=== PATIENT | male | born 1965 | race Caucasian/White ===

== ENCOUNTER 2023-04-15 15:43 | Emergency (ER) | payer BC, OTHER ==
[2023-04-15] MEDS ORDERED: Albuterol/Ipratropium 3.0-0.5 MG/3 ML Neb Soln NEB PRN (16:11)
[2023-04-15] MEDS ORDERED: Lactated Ringers 1,000 ML IV SCH (16:15)
[2023-04-15 16:38] LABS: BASOPHILS ABSOLUTE AUTO 0.3 K/mm3 (0.0-0.2); EOSINOPHILS ABSOLUTE AUTO 0.6 K/mm3 (0.0-0.4); EOSINOPHILS PERCENT AUTO 5.1 % (0.0-6.0); HEMATOCRIT 45.3 % (42.0-52.0); IMMATURE GRAN ABSOLUTE AUTO 0.19 K/mm3 (0.00-0.05); IMMATURE GRAN PERCENT AUTO 1.7 % (0.0-0.4); LYMPHOCYTES ABSOLUTE AUTO 1.9 K/mm3 (1.0-4.8); LYMPHOCYTES PERCENT AUTO 16.6 % (24.0-44.0); MEAN CORPUSCULAR HEMOGLOBIN 30.5 pg (28.0-32.0); MEAN CORPUSCULAR HGB CONC 33.1 g/dl (32.0-36.0); MEAN CORPUSCULAR VOLUME 92.1 fl (83.0-99.0); MEAN PLATELET VOLUME 10.1 fl (9.4-12.4); MONOCYTES ABSOLUTE AUTO 0.6 K/mm3 (0.0-0.8); MONOCYTES PERCENT AUTO 5.5 % (0.0-8.0); NEUTROPHILS ABSOLUTE AUTO 7.8 K/mm3 (1.8-7.7); NEUTROPHILS PERCENT AUTO 68.1 % (41.0-71.0); PLATELET COUNT,PLT 278 K/mm3 (150-400); RED BLOOD CELL COUNT 4.92 M/mm3 (4.52-5.90); WHITE BLOOD CELL COUNT,WBC 11.48 K/mm3 (3.9-11.3)
[2023-04-15 16:48] LABS: INR 0.98; PROTHROMBIN TIME 10.5 SECONDS (9.7-12.0)
[2023-04-15 16:49] LABS: A/G RATIO 0.9 (1-2); ALANINE AMINOTRANSFERASE,ALT 131 U/L (16-63); ALBUMIN 3.7 g/dl (3.4-5.0); ALKALINE PHOSPHATASE 272 U/L (46-116); ANION GAP 14.9 (5-15); ASPARTATE AMNIOTRANSFERASE,AST 104 U/L (15-37); BILIRUBIN TOTAL 0.3 mg/dL (0.2-1.0); BLOOD UREA NITROGEN,BUN 22 mg/dL (7-18); BUN/CREATININE RATIO 18.3 (14-18); C-REACTIVE PROTEIN 0.8 mg/dL (<1.0); CALCIUM 9.6 mg/dL (8.5-10.1); CARBON DIOXIDE,CO2 30 mEq/L (21-32); CHLORIDE,CL 99 mEq/L (98-107); CREATININE 1.2 mg/dL (0.7-1.3); EST CRCL DRUG DOSING (CG) 71.87 mL/min; ESTIMATED GFR 70 mL/min (>60); GLUCOSE RANDOM 116 mg/dL (70-99); MAGNESIUM 1.6 mg/dL (1.8-2.4); POTASSIUM,K 3.9 mEq/L (3.5-5.1); PROTEIN TOTAL,TP 7.9 g/dl (6.4-8.2); SODIUM,NA 140 mEq/L (136-145)
[2023-04-15 16:50] LABS: PTT,PARTIAL THROMBOPLSTIN TIME 30.3 SECONDS (21.7-31.4)
[2023-04-15 16:53] LABS: TROPONIN I HIGH SENSITIVITY < 4 pg/mL (<=76)
[2023-04-15 17:45] LABS: CORONAVIRUS COVID-19 NAA NEGATIVE (NEGATIVE); INFLUENZA A NAA NEGATIVE (NEGATIVE); RESPIRATORY SYNCYTIAL VIR NAA NEGATIVE (NEGATIVE)
[2023-04-15] MEDS ORDERED: Iopamidol 755 Mg/ML 100 ML Bottle IVPUSH ONE (18:06)
[2023-04-15] MEDS ORDERED: Sodium Chloride 0.9% 100 ML IV SCH (18:15)
== END 2023-04-15 20:15 | disposition home or self-care (01) ==
LOC: JD.ED 15:43
DX: R06.02 Shortness of breath (principal); R63.4 Abnormal weight loss; C34.31 Malignant neoplasm of lower lobe, right bronchus or lung
CPT/HCPCS: 0241U; 36415; 71045; 71275; 80053; 83735; 83880; 84443; 84484; 85025; 85379; 85610; 85730; 86140; 93005; 94640; 96360; 96361; 99285; J7120; Q9967; 93010; J7620-GY

== ENCOUNTER 2023-04-19 16:05 | Emergency (ER) | payer BC ==
[2023-04-19] MEDS ORDERED: Metoclopramide 10 MG/2 ML SDV IVPUSH ONE (16:26)
[2023-04-19] MEDS ORDERED: HYDROmorphone 1 MG/ML Syringe IVPUSH ONE (16:26)
[2023-04-19] MEDS ORDERED: Dextrose 5%-0.9% NaCl 1,000 ML IV SCH (16:30)
== END 2023-04-19 17:40 | disposition home or self-care (01) ==
LOC: JD.ED 16:05
DX: S22.089A Unspecified fracture of T11-T12 vertebra, initial encounter for closed fracture (principal); J44.9 Chronic obstructive pulmonary disease, unspecified; Z79.899 Other long term (current) drug therapy; X58.XXXA Exposure to other specified factors, initial encounter
CPT/HCPCS: 72128; 72128-26; 72131; 72131-26; 93005; 93010; 96361; 96374; 96375; 99284; 99285-25; J1170; J2765; J7042

== ENCOUNTER 2023-09-18 16:48 | Emergency (ER) | payer BC ==
[2023-09-18] MEDS: Sodium Chloride 0.9% 10 ML Syringe FLUSH PRN (17:32)
[2023-09-18] MEDS: LORazepam 2 MG/ML SDV IVPUSH ONE (17:37)
[2023-09-18] MEDS: Metoclopramide 10 MG/2 ML SDV IVPUSH ONE (17:39)
[2023-09-18] MEDS: Sodium Chloride 0.9% 1,000 ML IV STA (17:41)
[2023-09-18 17:43] LABS: BASOPHILS PERCENT AUTO 0.4 % (0.0-1.0); EOSINOPHILS ABSOLUTE AUTO 0.1 K/mm3 (0.0-0.4); EOSINOPHILS PERCENT AUTO 0.9 % (0.0-6.0); HEMATOCRIT 35.1 % (42.0-52.0); HEMOGLOBIN 11.4 gm/dl (14.0-18.0); IMMATURE GRAN ABSOLUTE AUTO 0.01 K/mm3 (0.00-0.05); IMMATURE GRAN PERCENT AUTO 0.2 % (0.0-0.4); LYMPHOCYTES ABSOLUTE AUTO 0.6 K/mm3 (1.0-4.8); LYMPHOCYTES PERCENT AUTO 10.4 % (24.0-44.0); MEAN CORPUSCULAR HEMOGLOBIN 29.6 pg (28.0-32.0); MEAN CORPUSCULAR HGB CONC 32.5 g/dl (32.0-36.0); MEAN CORPUSCULAR VOLUME 91.2 fl (83.0-99.0); MEAN PLATELET VOLUME 8.8 fl (9.4-12.4); MONOCYTES ABSOLUTE AUTO 0.4 K/mm3 (0.0-0.8); MONOCYTES PERCENT AUTO 6.4 % (0.0-8.0); NEUTROPHILS ABSOLUTE AUTO 4.5 K/mm3 (1.8-7.7); NEUTROPHILS PERCENT AUTO 81.7 % (41.0-71.0); PLATELET COUNT,PLT 260 K/mm3 (150-400); RED BLOOD CELL COUNT 3.85 M/mm3 (4.52-5.90); WHITE BLOOD CELL COUNT,WBC 5.48 K/mm3 (3.9-11.3)
[2023-09-18 18:06] LABS: CORONAVIRUS COVID-19 NAA NEGATIVE (NEGATIVE); INFLUENZA A NAA NEGATIVE (NEGATIVE); RESPIRATORY SYNCYTIAL VIR NAA NEGATIVE (NEGATIVE)
[2023-09-18 18:10] LABS: A/G RATIO 0.9 (1-2); ALBUMIN 3.5 g/dl (3.4-5.0); ANION GAP 15.5 (5-15); BILIRUBIN TOTAL 0.3 mg/dL (0.2-1.0); BUN/CREATININE RATIO 18.2 (14-18); C-REACTIVE PROTEIN 0.4 mg/dL (<0.30); CALCIUM 8.7 mg/dL (8.5-10.1); CREATININE 1.1 mg/dL (0.7-1.3); EST CRCL DRUG DOSING (CG) 68.73 mL/min; POTASSIUM,K 3.5 mEq/L (3.5-5.1); PROTEIN TOTAL,TP 7.3 g/dl (6.4-8.2)
== END 2023-09-18 19:37 | disposition home or self-care (01) ==
LOC: JD.ED 16:48
DX: K52.9 Noninfective gastroenteritis and colitis, unspecified (principal); J44.9 Chronic obstructive pulmonary disease, unspecified; F17.210 Nicotine dependence, cigarettes, uncomplicated; Z79.899 Other long term (current) drug therapy
CPT/HCPCS: 0241U; 36415; 80053; 83690; 85025; 86140; 96361; 96374; 96375; 99284; J2060; J2765; J3490; J7030

== ENCOUNTER 2023-10-18 16:06 | Inpatient (IN) | payer BC ==
[2023-10-18 17:30] LABS: BASOPHILS PERCENT AUTO 0.6 % (0.0-1.0); EOSINOPHILS PERCENT AUTO 0.3 % (0.0-6.0); HEMATOCRIT 35.6 % (42.0-52.0); HEMOGLOBIN 11.6 gm/dl (14.0-18.0); IMMATURE GRAN ABSOLUTE AUTO 0.04 K/mm3 (0.00-0.05); IMMATURE GRAN PERCENT AUTO 0.6 % (0.0-0.4); LYMPHOCYTES ABSOLUTE AUTO 0.7 K/mm3 (1.0-4.8); LYMPHOCYTES PERCENT AUTO 9.2 % (24.0-44.0); MEAN CORPUSCULAR HEMOGLOBIN 27.8 pg (28.0-32.0); MEAN CORPUSCULAR HGB CONC 32.6 g/dl (32.0-36.0); MEAN CORPUSCULAR VOLUME 85.2 fl (83.0-99.0); MEAN PLATELET VOLUME 9.3 fl (9.4-12.4); MONOCYTES ABSOLUTE AUTO 0.6 K/mm3 (0.0-0.8); MONOCYTES PERCENT AUTO 8.1 % (0.0-8.0); NEUTROPHILS ABSOLUTE AUTO 5.7 K/mm3 (1.8-7.7); NEUTROPHILS PERCENT AUTO 81.2 % (41.0-71.0); PLATELET COUNT,PLT 249 K/mm3 (150-400); RED BLOOD CELL COUNT 4.18 M/mm3 (4.52-5.90); WHITE BLOOD CELL COUNT,WBC 7.06 K/mm3 (3.9-11.3)
[2023-10-18] MEDS: Sodium Chloride 0.9% 2,000 ML IV ONE (17:45)
[2023-10-18] MEDS: Ondansetron 4 MG/2 ML SDV IVPUSH ONE (17:46)
[2023-10-18] MEDS: Famotidine 20 MG/2 ML SDV IVPUSH ONE (17:47)
[2023-10-18 17:50] LABS: A/G RATIO 0.8 (1-2); ALANINE AMINOTRANSFERASE,ALT 42 U/L (16-63); ALBUMIN 3.3 g/dl (3.4-5.0); ALKALINE PHOSPHATASE 196 U/L (46-116); ANION GAP 13.6 (5-15); ASPARTATE AMNIOTRANSFERASE,AST 70 U/L (15-37); BILIRUBIN TOTAL 0.3 mg/dL (0.2-1.0); BLOOD UREA NITROGEN,BUN 27 mg/dL (7-18); BUN/CREATININE RATIO 24.5 (14-18); CALCIUM 8.8 mg/dL (8.5-10.1); CARBON DIOXIDE,CO2 31 mEq/L (21-32); CHLORIDE,CL 94 mEq/L (98-107); CREATININE 1.1 mg/dL (0.7-1.3); EST CRCL DRUG DOSING (CG) 59.56 mL/min; ESTIMATED GFR 77 mL/min (>60); GLUCOSE RANDOM 111 mg/dL (70-99); LIPASE 53 U/L (16-77); MAGNESIUM 2.3 mg/dL (1.8-2.4); POTASSIUM,K 3.6 mEq/L (3.5-5.1); PROTEIN TOTAL,TP 7.6 g/dl (6.4-8.2); SODIUM,NA 135 mEq/L (136-145)
[2023-10-18 17:57] LABS: TROPONIN I HIGH SENSITIVITY < 4 pg/mL (<=76)
[2023-10-18] MEDS: Iopamidol 612 MG/ML 100 ML Bottle IVPUSH ONE (19:07)
[2023-10-18 19:25] LABS: APPEARANCE,URINE SLT CLOUDY (Clear); BILIRUBIN,URINE NEGATIVE (Negative); COLOR,URINE DARK YELLOW (Yellow); GLUCOSE,URINE NEGATIVE (Negative); KETONES,URINE NEGATIVE (Negative); LEUKOCYTE ESTERASE,URINE NEGATIVE (Negative); NITRITE,URINE NEGATIVE (Negative); OCCULT BLOOD,URINE 3+ (Negative); PH,URINE 8.5 (5.0-8.0); PROTEIN,URINE 2+ (Negative); UROBILINOGEN,URINE 0.2 (0.2-1.0)
[2023-10-18 19:35] LABS: BARBITURATE SCREEN,URINE NEGATIVE (CUTOFF=200); BENZODIAZEPINES SCREEN,URINE NEGATIVE (CUTOFF=150); BUPRENORPHINE SCREEN,URINE NEGATIVE (CUTOFF=10); METHADONE SCREEN, URINE PRESUMPTIVE POSITIVE (CUT0FF=200); METHAMPHETAMINES SCREEN, URINE NEGATIVE (CUTOFF=500); OXYCODONE SCREEN,URINE NEGATIVE (CUT0FF=100); THC SCREEN,URINE 20 NG/ML NEGATIVE (CUTOFF=50)
[2023-10-18 19:38] LABS: AMPHETAMINES SCREEN, URINE NEGATIVE (CUTOFF=500)
[2023-10-18 19:42] LABS: BACTERIA,URINE FEW /hpf (FEW); MUCUS,URINE NOT SEEN /hpf (FEW); RBC,URINE >100 /hpf (0-5); SQUAMOUS EPITHELIAL CELLS,UR 0-5 /hpf (0-5); WBC,URINE 0-5 /hpf (0-5)
[2023-10-18] MEDS: OLANZapine 10 MG Vial ONE (20:21)
[2023-10-18] MEDS: LORazepam 2 MG/ML SDV IVPUSH ONE (20:37)
[2023-10-18] MEDS: LORazepam 2 MG/ML SDV ONE (20:40)
[2023-10-18] MEDS ORDERED: Ondansetron 4 MG/2 ML SDV IV PRN (21:07)
[2023-10-18] MEDS ORDERED: oxyCODONE 5 MG Tab PO PRN (21:07)
[2023-10-18] MEDS ORDERED: Acetaminophen 325 MG Tab PO PRN (21:07)
[2023-10-18] MEDS ORDERED: Naloxone 0.4 MG/ML SDV IVPUSH PRN (21:07)
[2023-10-18] MEDS ORDERED: Polyethylene Glycol 3350 Powder 17 GM Packet PO PRN (21:07)
[2023-10-18] MEDS: LORazepam 2 MG/ML SDV IVPUSH PRN (22:15)
[2023-10-19] MEDS: Morphine 2 MG/ML SYRINGE IVPUSH PRN (05:32)
[2023-10-19] MEDS: Gabapentin 100 MG Cap PO SCH (11:32)
[2023-10-19] MEDS: Enoxaparin 40 MG/0.4 ML Syringe SUBCUT SCH (11:44)
[2023-10-19] MEDS: Sodium Chloride 0.9% 1,000 ML IV SCH (11:44)
[2023-10-19] MEDS: OLANZapine 10 MG Vial IM ONE ×2 (21:05→22:04)
[2023-10-20 05:57] LABS: BASOPHILS ABSOLUTE AUTO 0.1 K/mm3 (0.0-0.2); BASOPHILS PERCENT AUTO 0.8 % (0.0-1.0); EOSINOPHILS ABSOLUTE AUTO 0.1 K/mm3 (0.0-0.4); EOSINOPHILS PERCENT AUTO 1.9 % (0.0-6.0); HEMATOCRIT 32.9 % (42.0-52.0); HEMOGLOBIN 10.8 gm/dl (14.0-18.0); IMMATURE GRAN ABSOLUTE AUTO 0.03 K/mm3 (0.00-0.05); IMMATURE GRAN PERCENT AUTO 0.5 % (0.0-0.4); LYMPHOCYTES ABSOLUTE AUTO 0.9 K/mm3 (1.0-4.8); LYMPHOCYTES PERCENT AUTO 15.2 % (24.0-44.0); MEAN CORPUSCULAR HEMOGLOBIN 27.3 pg (28.0-32.0); MEAN CORPUSCULAR HGB CONC 32.8 g/dl (32.0-36.0); MEAN CORPUSCULAR VOLUME 83.1 fl (83.0-99.0); MEAN PLATELET VOLUME 9.1 fl (9.4-12.4); MONOCYTES ABSOLUTE AUTO 0.7 K/mm3 (0.0-0.8); MONOCYTES PERCENT AUTO 11.2 % (0.0-8.0); NEUTROPHILS ABSOLUTE AUTO 4.2 K/mm3 (1.8-7.7); NEUTROPHILS PERCENT AUTO 70.4 % (41.0-71.0); PLATELET COUNT,PLT 258 K/mm3 (150-400); RED BLOOD CELL COUNT 3.96 M/mm3 (4.52-5.90); WHITE BLOOD CELL COUNT,WBC 5.91 K/mm3 (3.9-11.3)
[2023-10-20 07:13] LABS: A/G RATIO 0.7 (1-2); ALBUMIN 2.5 g/dl (3.4-5.0); ANION GAP 13.5 (5-15); BILIRUBIN TOTAL 0.3 mg/dL (0.2-1.0); BUN/CREATININE RATIO 17.5 (14-18); CALCIUM 8.1 mg/dL (8.5-10.1); CREATININE 0.8 mg/dL (0.7-1.3); EST CRCL DRUG DOSING (CG) 80.51 mL/min; PHOSPHORUS 0.9 mg/dL (2.6-4.7); POTASSIUM,K 3.5 mEq/L (3.5-5.1); PROTEIN TOTAL,TP 6.2 g/dl (6.4-8.2)
[2023-10-20 07:18] LABS: FOLIC ACID 28.9 ng/mL (8.6-58.9)
[2023-10-20] MEDS ORDERED: Potassium Chloride 20 MEQ Tab.ER PO ONE (11:00)
[2023-10-20] MEDS: Potassium Phosphates 30 MMOLE in Sodium Chloride 0.9% 500 ML IV ONE (12:51)
[2023-10-20] MEDS: Gabapentin 300 MG Cap PO SCH (16:10)
[2023-10-20] MEDS ORDERED: HYDROCODONE PO PRN (17:38)
[2023-10-20] MEDS ORDERED: IBUPROFEN PO PRN (17:38)
[2023-10-20] MEDS: LORazepam 2 MG/ML SDV IVPUSH PRN (18:20)
[2023-10-20] MEDS: Haloperidol Lactate 5 MG/ML SDV IVPUSH PRN (19:04)
[2023-10-20] MEDS: OLANZapine 10 MG Vial IM PRN (20:16)
[2023-10-20] MEDS: QUEtiapine 25 MG Tab PO SCH (20:56)
[2023-10-21 06:26] LABS: A/G RATIO 0.7 (1-2); ANION GAP 15.6 (5-15); BILIRUBIN TOTAL 0.3 mg/dL (0.2-1.0); BUN/CREATININE RATIO 16.7 (14-18); CALCIUM 8.1 mg/dL (8.5-10.1); CREATININE 0.9 mg/dL (0.7-1.3); EST CRCL DRUG DOSING (CG) 72.01 mL/min; MAGNESIUM 2.1 mg/dL (1.8-2.4); PHOSPHORUS 1.4 mg/dL (2.6-4.7); POTASSIUM,K 3.6 mEq/L (3.5-5.1); PROTEIN TOTAL,TP 7.4 g/dl (6.4-8.2)
[2023-10-21] MEDS ORDERED: Scopalamine 1mg/3day Transdermal Patch TRDERM SCH (09:00)
[2023-10-21] MEDS ORDERED: OLANZapine 10 MG Vial IM PRN (09:00)
[2023-10-21] MEDS ORDERED: Acetaminophen/HYDROcodone 325-5 MG Tab PO PRN (10:22)
[2023-10-21] MEDS: Potassium Chloride 20 MEQ Tab.ER PO ONE (10:50)
[2023-10-21] MEDS: Phosphorus #1 250 MG Tab PO ONE (10:50)
[2023-10-21] MEDS ORDERED: OLANZapine 5 MG Tab PO SCH (12:00)
[2023-10-21] MEDS: OLANZapine 5 MG Tab PO SCH (15:17)
[2023-10-21] MEDS ORDERED: Ibuprofen 400 MG Tab PO PRN (16:58)
[2023-10-21] MEDS ORDERED: Haloperidol Lactate 5 MG/ML SDV IM PRN (19:51)
[2023-10-21] MEDS: Lidocaine 4% Crm 5 Gm with Transparent Dressing Kit TOP ONE ×2 (21:32→21:36)
[2023-10-22 05:02] LABS: ANION GAP 19.1 (5-15); BUN/CREATININE RATIO 12.7 (14-18); CALCIUM 8.5 mg/dL (8.5-10.1); CREATININE 1.1 mg/dL (0.7-1.3); EST CRCL DRUG DOSING (CG) 58.6 mL/min; PHOSPHORUS 1.4 mg/dL (2.6-4.7); POTASSIUM,K 3.1 mEq/L (3.5-5.1)
[2023-10-22] MEDS: Benzonatate 100 MG Cap PO PRN (16:00)
[2023-10-22] MEDS: Potassium Chloride 20 MEQ Tab.ER PO ONE (20:46)
[2023-10-22] MEDS: Phosphorus #1 250 MG Tab PO ONE (20:47)
[2023-10-23 05:27] LABS: ANION GAP 17.4 (5-15); BUN/CREATININE RATIO 16.7 (14-18); CALCIUM 8.4 mg/dL (8.5-10.1); CREATININE 0.9 mg/dL (0.7-1.3); EST CRCL DRUG DOSING (CG) 71.62 mL/min; MAGNESIUM 1.6 mg/dL (1.8-2.4); PHOSPHORUS 1.6 mg/dL (2.6-4.7); POTASSIUM,K 3.4 mEq/L (3.5-5.1)
[2023-10-23] MEDS: Potassium Chloride 20 MEQ Tab.ER PO ONE (09:34)
[2023-10-23] MEDS: Phosphorus #1 250 MG Tab PO ONE (09:35)
[2023-10-23] MEDS: Magnesium Sulfate/Water 4 GM in Premix Bag 1 BAG IV ONE (10:21)
[2023-10-23] MEDS: Sodium Chloride 0.9% 10 ML Syringe FLUSH SCH (11:50)
[2023-10-23] MEDS: Gadobenate Dimeglumine 529 MG/ML 15 ML SDV IVPUSH ONE (11:50)
[2023-10-24 05:29] LABS: ANION GAP 15.1 (5-15); CALCIUM 8.6 mg/dL (8.5-10.1); EST CRCL DRUG DOSING (CG) 63.81 mL/min; MAGNESIUM 1.9 mg/dL (1.8-2.4); PHOSPHORUS 1.9 mg/dL (2.6-4.7); POTASSIUM,K 4.1 mEq/L (3.5-5.1)
[2023-10-24] MEDS: Phosphorus #1 250 MG Tab PO ONE (20:58)
[2023-10-25] MEDS: LORazepam 2 MG/ML SDV IM PRN (00:53)
[2023-10-25 05:55] LABS: ANION GAP 16.2 (5-15); BUN/CREATININE RATIO 16.7 (14-18); CALCIUM 8.2 mg/dL (8.5-10.1); CREATININE 0.9 mg/dL (0.7-1.3); EST CRCL DRUG DOSING (CG) 70.67 mL/min; MAGNESIUM 1.7 mg/dL (1.8-2.4); PHOSPHORUS 1.9 mg/dL (2.6-4.7); POTASSIUM,K 3.2 mEq/L (3.5-5.1)
[2023-10-25] MEDS: Magnesium Sulfate/Water 4 GM in Premix Bag 1 BAG IV ONE (08:27)
[2023-10-25] MEDS: Phosphorus #1 250 MG Tab PO ONE (08:27)
[2023-10-25] MEDS: Potassium Chloride 20 MEQ Tab.ER PO ONE (08:27)
[2023-10-25 09:42] LABS: VITAMIN B1, WHOLE BLOOD 114 nmol/L (70-180)
[2023-10-26 06:19] LABS: ANION GAP 17.7 (5-15); CALCIUM 8.3 mg/dL (8.5-10.1); CREATININE 0.9 mg/dL (0.7-1.3); EST CRCL DRUG DOSING (CG) 70.67 mL/min; PHOSPHORUS 1.6 mg/dL (2.6-4.7); POTASSIUM,K 3.7 mEq/L (3.5-5.1)
[2023-10-26] MEDS: Magnesium Sulfate/Water 2 GM in Premix Bag 1 BAG IV ONE ×2 (21:01→21:03)
[2023-10-26] MEDS: Potassium Chloride 20 MEQ Tab.ER PO ONE ×2 (21:01→21:02)
[2023-10-26] MEDS: Phosphorus #1 250 MG Tab PO ONE ×2 (21:02)
[2023-10-27 06:02] LABS: ANION GAP 16.5 (5-15); CALCIUM 8.7 mg/dL (8.5-10.1); EST CRCL DRUG DOSING (CG) 63.75 mL/min; MAGNESIUM 2.2 mg/dL (1.8-2.4); PHOSPHORUS 1.7 mg/dL (2.6-4.7); POTASSIUM,K 3.5 mEq/L (3.5-5.1)
[2023-10-27] MEDS ORDERED: Magnesium Sulfate/Water 4 GM in Premix Bag 1 BAG IV ONE (13:45)
[2023-10-27] MEDS: Potassium Phosphates 30 MMOLE in Sodium Chloride 0.9% 500 ML IV ONE (14:52)
[2023-10-27] MEDS: QUEtiapine 25 MG Tab PO SCH (21:10)
[2023-10-28 05:24] LABS: ANION GAP 15.5 (5-15); CALCIUM 8.4 mg/dL (8.5-10.1); EST CRCL DRUG DOSING (CG) 63.75 mL/min; POTASSIUM,K 3.5 mEq/L (3.5-5.1)
[2023-10-28] MEDS: Potassium Chloride 20 MEQ Tab.ER PO SCH (08:00)
== END 2023-10-29 15:09 | disposition home health service (06) | DRG 421 ==
LOC: JD.ED 16:06 → JD.MS 21:07
PROVIDERS: ADMIT Family Medicine; ATTEND Family Medicine
DX: R62.7 Adult failure to thrive (principal); E43 Unspecified severe protein-calorie malnutrition; G93.41 Metabolic encephalopathy; C34.91 Malignant neoplasm of unspecified part of right bronchus or lung; C78.7 Secondary malignant neoplasm of liver and intrahepatic bile duct; C79.51 Secondary malignant neoplasm of bone; Z68.1 Body mass index [BMI] 19.9 or less, adult; Z66 Do not resuscitate; Z51.5 Encounter for palliative care; G89.3 Neoplasm related pain (acute) (chronic); E86.0 Dehydration; J44.9 Chronic obstructive pulmonary disease, unspecified; E83.39 Other disorders of phosphorus metabolism; C79.31 Secondary malignant neoplasm of brain; F03.B11 Unspecified dementia, moderate, with agitation; E87.6 Hypokalemia; F05 Delirium due to known physiological condition; R64 Cachexia; R94.31 Abnormal electrocardiogram [ECG] [EKG]; F17.210 Nicotine dependence, cigarettes, uncomplicated; Z87.442 Personal history of urinary calculi; Z79.899 Other long term (current) drug therapy
CPT/HCPCS: 36415; 51701; 51798; 70450; 70450-26; 70553; 70553-26; 71045; 71045-26; 74177; 74177-26; 80048; 80053; 80306; 80307; 81001; 82140; 82607; 82746; 82947; 83605; 83690; 83735; 84100; 84425; 84484; 85025; 87045; 87046; 87899; 92610-GN; 93005; 93010; 96361; 96374; 96375; 97110-GP; 97161-GP; 97530-GP; 99223; 99231; 99232; 99239; 99284; 99285-25; A9270-GY; A9577; C1758; J1630; J1650; J2060; J2270; J2405; J3475; J3490; J7030; J7040; Q9967

== ENCOUNTER 2023-11-07 11:35 | Inpatient (IN) | payer BC ==
[2023-11-07] MEDS ORDERED: Scopalamine 1mg/3day Transdermal Patch TRDERM PRN (13:23)
[2023-11-07] MEDS ORDERED: Morphine 10 MG/0.5 ML Oral Syringe PO PRN (13:23)
[2023-11-07] MEDS ORDERED: Sodium Chloride 0.9% 10 ML Syringe FLUSH PRN (14:08)
[2023-11-07] MEDS: Nicotine 21 MG/24 Hr Patch TRDERM SCH ×2 (14:49→15:29)
[2023-11-07] MEDS: QUEtiapine 25 MG Tab PO SCH (20:45)
[2023-11-07] MEDS: Gabapentin 300 MG Cap PO SCH (20:45)
[2023-11-07] MEDS: LORazepam 2 MG/ML SDV IVPUSH PRN (21:16)
[2023-11-08] MEDS: Acetaminophen 325 MG Tab PO PRN (09:23)
[2023-11-08] MEDS: fentaNYL 100 MCG/2 ML SDV IVPUSH PRN (09:54)
[2023-11-08] MEDS: OLANZapine 5 MG Tab PO SCH (13:56)
[2023-11-08] MEDS ORDERED: oxyCODONE 5 MG Tab PO PRN ×2 (15:33→19:28)
[2023-11-08] MEDS: Non-Formulary Medication 1 Each (Lidocaine 5% 700 MG Patch) TRDERM SCH (15:43)
[2023-11-08] MEDS ORDERED: Lidocaine 4% 1 each Patch TOP PRN (16:00)
[2023-11-08] MEDS ORDERED: Ondansetron 4 MG Tab.DIS PO PRN (19:28)
[2023-11-08] MEDS ORDERED: Non-Formulary Medication 1 Each (Lorazepam 0.5 MG Tablet) PO PRN (19:28)
[2023-11-09] MEDS: OLANZapine 5 MG Tab PO SCH (14:19)
[2023-11-09] MEDS: Morphine 2 MG/ML SYRINGE IVPUSH PRN (19:27)
[2023-11-10] MEDS: Nicotine 14 MG/24 Hr Patch TRDERM SCH ×2 (17:50→18:43)
[2023-11-12] MEDS: Glycopyrrolate 0.2 MG/ML SDV IVPUSH PRN (11:35)
[2023-11-12] MEDS: Scopalamine 1mg/3day Transdermal Patch TRDERM SCH (11:39)
== END 2023-11-13 13:18 | DRG 862 ==
LOC: JD.ED 11:35 → JD.MS 13:02
PROVIDERS: ADMIT Internal Medicine; ATTEND Internal Medicine
DX: Z51.5 Encounter for palliative care (principal); E43 Unspecified severe protein-calorie malnutrition; C71.8 Malignant neoplasm of overlapping sites of brain; C22.9 Malignant neoplasm of liver, not specified as primary or secondary; Z68.1 Body mass index [BMI] 19.9 or less, adult; C34.90 Malignant neoplasm of unspecified part of unspecified bronchus or lung; Z66 Do not resuscitate; C79.51 Secondary malignant neoplasm of bone; R62.7 Adult failure to thrive; E86.0 Dehydration; J44.9 Chronic obstructive pulmonary disease, unspecified; F03.B0 Unspecified dementia, moderate, without behavioral disturbance, psychotic disturbance, mood disturbance, and anxiety; R33.9 Retention of urine, unspecified; R64 Cachexia; F17.210 Nicotine dependence, cigarettes, uncomplicated; Z91.02 Food additives allergy status
CPT/HCPCS: 51701; 51702; 51798; 96523; 99284; A9270-GY; C1758; J1596; J1642; J2060; J2270; J3010; U0002